=== PATIENT | female | born 1980 | race Caucasian/White ===

== ENCOUNTER 2021-02-27 11:24 | Emergency (ER) | payer OTHER, SELFPAY ==
[2021-02-27 11:27] VITALS: BP 118/87; PULSE 109; RESP 20; TEMP 37.7; O2SAT 100
--- NOTE | 2021-02-27 11:42 | PC.NURSE ---
Reports two weeks of severe pain to right back where she wears a lidocaine patch. She also reports cloudy urine for 2 months and dark urine for the last two days. Onset of fever and chills two days ago as well. Lastly she reports having increasing shortness of breath while at work last night. Patient also tells me that she took 9 pain zappers over the 10 hours she was at work yesterday. She is unsure as to exactly what was in the medication but tells me the medication only made the pain tolerable . At this time she is awake, alert, and oriented. Rates pain at 4-5 after taking one of my mom's pain pills , one of the big boy motrins .
[2021-02-27 11:47] VITALS: BP 122/77; PULSE 97; RESP 10; TEMP 37.2; O2SAT 100
[2021-02-27 12:12] LABS: Basophils Absolute Auto 0.1 K/mm3 (0.0-0.1); Basophils Percent Auto 0.4 % (0.2-1.2); Eosinophils Absolute Auto 0.1 K/mm3 (0-0.3); Eosinophils Percent Auto 0.5 % (0-4.4); Hematocrit 37.7 % (37.0-47.0); Hemoglobin 12.6 g/dL (12.0-15.0); Immature Granulocyte Absolute 0.05 K/mm3 (0.00-0.031); Immature Granulocyte Percent A 0.4 % (0-0.5); Lymphocytes Absolute Auto 1.35 K/mm3 (0.9-3.2); Lymphocytes Percent Auto 11.2 % (18.3-44.2); Mean Corpuscular HGB Conc 33.4 g/dl (32-36); Mean Corpuscular Hemoglobin 32.1 pg (26-34); Mean Corpuscular Volume 96.2 fl (80-100); Mean Platelet Volume 9.5 fl (7.4-10.4); Monocytes Percent Auto 8.2 % (2.6-8.5); Neutrophils Absolute Auto 9.5 K/mm3 (1.3-6.7); Neutrophils Percent Auto 79.3 % (45.5-73.1); Platelet Count Result 292 k/mm3 (150-375); Red Blood Count 3.92 M/mm3 (4.2-5.4); Red Cell Distribution Width 11.9 % (11.5-14.5)
[2021-02-27 12:17] LABS: Add Urine Microscopic? YES; Appearance Urine Cloudy (Clear); Bacteria Urine Trace /hpf; Bilirubin Urine Negative (Negative); Blood Urine 2+ (Negative); Color Urine Yellow (Yellow); Glucose Urine UA Negative (Negative); Ketones Urine Negative (Negative); Leukocyte Esterase Ur 1+ LEU/UL (Negative); Mucus Urine Rare /lpf; Nitrate Urine Negative (Negative); Protein Urine 1+ mg/dL (Negative); Specific Grav Ur 1.019 (1.001-1.035); Squamous Epithelial Cell Urine Many /hpf (Few); Urobilinogen Urine Negative mg/dL (<2.0); WBC Urine 31-50 /hpf
[2021-02-27 12:21] LABS: Anion Gap 10 mmol/L (8-16); Blood Urea Nitrogen 10 mg/dL (7-17); Carbon Dioxide 25 mmol/L (22-30); Chloride 100 mmol/L (98-107); Estimated CRCL calculation 94 ml/min; Estimated Glomerular Filt Rate > 60; Glucose 94 mg/dL (65-110); Potassium 3.9 mmol/L (3.4-5.0); Sodium 135 mmol/L (137-145)
--- NOTE | 2021-02-27 13:16 | PC.NURSE ---
Patient is not in room. Gown is on bed. No patient belongings in room. It appears that the patient has left the ED. accounting technician told nursing staff that the patient was not in the room when he came to get her for imaging. Staff unable to locate this patient. There is no discontinued IV line noted in the room. No Staff in the ED was notified by the patient that she was leaving. Phone contact was attempted by MAYUR Boland at [phone] with no answer. Iram VIVAR was called and notified of patient elopement with IV still in place.
--- NOTE | 2021-02-27 17:34 | PC.NURSE ---
Unable to dispo this chart. Computer will not allow me to chart this out.
== END 2021-02-27 17:34 | disposition left against medical advice (07) ==
PROVIDERS: Emergency Provider Emergency Medicine
DX: R10.9 Unspecified abdominal pain (principal)
CPT/HCPCS: 36415; 80048; 81001; 81025; 85025; 87077; 87086; 87088; 87186; 99199

== ENCOUNTER 2024-06-09 11:00 | Emergency (ER) | payer OTHER, SELFPAY ==
--- NOTE | 2024-06-09 11:02 | ED_ITS ---
HPI - Skin/Abscess/Foreign Bdy General Chief complaint: Skin/Abscess/Foreign Body Stated complaint: face on fire spots on stomach Time Seen by Provider: 06/09/24 11:27 Source: patient, RN notes reviewed and old records reviewed Mode of arrival: ambulatory Limitations: no limitations History of Present Illness HPI narrative: 43-year-old female presents to the [facility] with feeling like her face is on fire, multiple areas of rash to her abdomen, legs and arms. Patient states that just started. Had a similar episode 2 weeks ago and stated that her face just peeled. Denies fevers. Patient denies any new creams or ointments lotions detergents. Denies any new food Denies any lip or tongue swelling. Denies any difficulty breathing. States that she has been using Dove soap and some type of barrier cream as wound well as Aquaphor. Treatments prior to arrival: none Related Data Allergies Allergy/AdvReac Type Severity Reaction Status Date / Time No Known Allergies Allergy Verified 06/09/24 11:03 Review of Systems Review of Systems: All systems reviewed & are unremarkable except as noted in HPI and below Constitutional: Constitutional: Reports no additional constitutional complai nts ENT: Reports system reviewed and no additional complaints, except as documented Cardiovascular: Cardiovascular: Reports no additional cardiovascular complaints, Denies chest pain and Denies dyspnea Respiratory: Respiratory: Reports no additional respiratory complaints, Denies chest congestion, Denies cough and Denies dyspnea Gastrointestinal: Gastrointestinal: Reports no additional gastrointestinal co mplaints, Denies abdominal pain, Denies nausea and Denies vomiting Musculoskeletal: Musculoskeletal: Reports no additional musculoskeletal complaints Integumentary/Breasts: Skin/Breast: Reports as per HPI PMFSH Social History Social History Alcohol intake: current Gender identity (if verbalized by the patient): Female Comments At the time of my signature, I reviewed and agree with the nursing past medical, surgical, social, and family history. There is no relevant family history pertinent to the patient complaint. Exam Const: General: cooperative, healthy appearing, comfortable, no acute distress, well developed, alert and well nourished Nutritional Appearance: well nourished Orientation/consciousness: patient oriented x3 Limitations: no limitations HENMT: Head: normal to inspection Ears: hearing grossly normal bilaterally, external ears normal, TM's normal bilaterally, EAC's normal, mastoids normal and no periauricular adenopathy Face/Nose/Sinus: Normal external nose present, normal facial exam and face symmetric Face and sinus: normal facial exam and face symmetric Mouth: Yes Normal oral and palatal mucosa present, Yes lip normal and Yes tongue normal Throat: posterior oropharynx normal, uvula midline and no uvular edema Eyes: General: appearance normal, both eyes and all related structures Alignment and Position: alignment normal Periorbital: periorbital findings normal Neck: Neck: normal visual inspection, full ROM, no lymphadenopathy and no meningeal signs Chest: Chest palpation & inspection: normal inspection of the chest Resp: Effort & Inspection: normal respiratory effort and able to speak in complete sentences Auscultation: clear to auscultation bilaterally, no crackles, no rales, no rhonchi and no wheezes Cardio: Rate: regular rate Skin: General skin exam: normal color and no rashes or lesions noted Le sions: no lesions Wounds: no wounds Other: No rashes noted to the face. A couple of red raised areas probable contact d ermatitis to the right lower abdomen, left forearm. Neuro: General: patient oriented x3, gait normal, tone normal, moves all extremities and no meningeal signs Cognition (Neuro): normal cognition Speech: normal speech Gait exam (Neuro): Normal gait present Extrem: General: normal to inspection, full ROM, capillary refill normal and normal gait Psych: Appearance: grossly normal and well kempt Mental Status: mental status grossly normal Speech and movement: Normal speech and movement present and Clear speech present Affect: normal affect Attitude: cooperative Course Course Level of Care: Express Care Visit Vital Signs Vital signs: Vital Signs Temperature 98.1 F 06/09/24 11:13 Pulse Rate 102 H 06/09/24 11:13 Respiratory Rate 16 06/09/24 11:13 Blood Pressure 126/96 H 06/09/24 11:13 Pulse Oximetry 99 06/09/24 11:13 Oxygen Delivery Room Air 06/09/24 11:13 Temperature 98.1 F 06/09/24 11:13 Pulse Rate 102 H 06/09/24 11:13 Respiratory Rate 16 06/09/24 11:13 Blood Pressure 126/96 H 06/09/24 11:13 Pulse Oximetry 99 06/09/24 11:13 Oxygen Delivery Room Air 06/09/24 11:13 Reviewed MDM - Skin/Abscess/Foreign Bdy MDM Narrative Medical decision making narrative: Patient sitting in exam room. Patient is nontoxic, vitals stable. Patient presents stating that her face feels like it is on fire. No rash noted to her face. Two areas 1 to the abdomen in 1 to the arm are noted. Patient denies any anaphylactic symptoms. No acute findings other than the small rash to the abdomen arm is noted on exam Discussed outpatient treatment with use of Tylenol, [id number] products with patient. Patient was seen leaving clinic after plan of care before discharge instructions. Patient in no acute distress. Discharge instructions reviewed with patient, as well as provided in writing per nursing staff. The instructions also include specific and strict return/GO TO THE ER as well as f/u information. All questions have been answered, and the patient deny any further questions with discharge and discharge plan. Some parts of this dictation were generated by voice recognition software and may contain typographical and/or grammatical inaccuracies. Differential Diagnosis Differential diagnosis: Likely abscess of skin or subcutaneous tissue, allergic reaction to drug, cellulitis and contact dermatitis Critical Care Time Critical Care Time Critical Care Time: No Discharge Plan Discharge Clinical Impression: Contact dermatitis Patient Disposition: Elopement After Seen by Prov Condition: Stable Instructions: Antibiotic Form, Contact Dermatitis (DC) Additional Instructions: The most important part of your care is follow up with Primary care provider. Take Benadryl 25-50 mg every 8 hours for itching Take Zyrtec every day Take Pepcid 20mg daily for 7 days Take the steroids starting today. Next dose will be 1st thing in the morning. Avoid hot showers, Take cool showers. Hot showers will make rashes worse Apply cool compresses every 2-3 hours for 15 minutes Go to the ER for new or worsening symptoms such as shortness of breath. Patient Language: [place] Follow-up/Referrals: UNKNOWN,DOCTOR [Primary Care Provider] - Stand Alone Forms: Work/School Release IP Time of Disposition: 11:34
[2024-06-09 11:13] VITALS: BP 126/96; PULSE 102; RESP 16; TEMP 36.7; O2SAT 99
== END 2024-06-09 11:35 | disposition left against medical advice (07) ==
PROVIDERS: Emergency Provider Nurse Practitioner
DX: L25.9 Unspecified contact dermatitis, unspecified cause (principal)
CPT/HCPCS: 99211; G0463